=== PATIENT | male | born 1955 | race African-American/Black ===

== ENCOUNTER 2016-10-18 08:57 | Emergency (ER) | payer SELFPAY ==
[~2016-10-18] VITALS: Ht 172.7 cm; Wt 70.0 kg
[2016-10-18 08:59] VITALS: BP 144/99
== END 2016-10-18 11:21 | disposition home or self-care (01) ==
LOC: ER 11:08
DX: S19.9XXA Unspecified injury of neck, initial encounter (principal); V18.4XXA Pedal cycle driver injured in noncollision transport accident in traffic accident, initial encounter; R03.0 Elevated blood-pressure reading, without diagnosis of hypertension; Y93.55 Activity, bike riding; Y92.415 Exit ramp or entrance ramp of street or highway as the place of occurrence of the external cause; Z98.1 Arthrodesis status
CPT/HCPCS: 99283